=== PATIENT | male | born 1995 | race Caucasian/White ===

== ENCOUNTER 2020-03-26 15:36 | Outpatient (CLI) | payer OTHER, SELFPAY ==
--- NOTE | ~2020-03-26 | XR_ITS ---
XR chest 2V DATE: 03/26/2020 17:34 INDICATION: Dyspnea. Shortness of breath. Lightheadedness, dizziness for 2 weeks. TECHNIQUE: PA and lateral views COMPARISON: None FINDINGS: Normal heart size. No hilar or mediastinal enlargement. No pulmonary infiltrate or consolid ation, pleural effusion or pulmonary vascular congestion or pneumothorax is detected. IMPRESSION: Negative chest Reviewed, dictated and finalized at location A. HERIZATION ADMINISTRATOR IMPRESSION: Negative chest
--- NOTE | 2020-03-26 17:39 | ECG_ITS ---
Measurements Intervals [place] Rate: 96 P: 51 DC: 149 QRS: -4 QRSD: 102 T: 63 QT: 334 QTc: 422 Interpretive Statements SINUS RHYTHM EARLY PRECORDIAL R/S TRANSITION VOLTAGE CRITERIA FOR LVH BORDERLINE ECG Electronically Signed On 03-27-2020 7:05:43 ENTRY LEVEL FINANCIAL ANALYST by Shon Moore D.O.
== END 2020-03-26 15:37 | disposition home or self-care (01) ==
LOC: ANHCARD 15:38
PROVIDERS: Family Provider Family Medicine; PCP Family Medicine; Visit Provider Nurse Practitioner Family
DX: R06.00 Dyspnea, unspecified (principal); R00.0 Tachycardia, unspecified
CPT/HCPCS: 71046; 93005

== ENCOUNTER 2020-03-28 11:06 | Outpatient (CLI) | payer OTHER, SELFPAY ==
--- NOTE | ~2020-03-28 | CT_ITS ---
EXAMINATION: CTA chest PE protocol EXAM DATE: 03/28/2020 12:02 INDICATION: Dizziness. Shortness of breath. History of COVID diagnosis. TECHNIQUE: Spiral CTA of the chest (pulmonary arteries) was performed with 100 cc Omnipaque 350 intr avenous contrast injection. Images were acquired during the pulmonary arterial phase. Coronal maxi mum intensity projection 3D-reconstructions were created by the technologist on dedicated workstation . Axial, coronal and sagittal reformatted images were reviewed. The dose-length product (DLP) for t his examination was 509.85 mGy-cm. The exposure was tailored according to patient size (auto mA exp osure control), and iterative reconstruction (ASIR) was used as additional dose reduction technique. There is no prior study for comparison. FINDINGS: There are no pulmonary emboli in the 1st through 3rd order (central and interlobar) pulmon jean arteries. Some loss of attenuation in the segmental pulmonary arteries due to respiratory motion , but no intraluminal filling defects suspected. No thoracic aortic dissection. The lungs are vish r. There are no pleural or pericardial effusions. Tracheobronchial tree is patent. There is no mediastinal, hilar or axillary lymphadenopathy. There is no pneumothorax. Heart normal in size. No evidence of coronary arterial calcification. There is hepatic steatosis. The bones are unremark able. IMPRESSION: 1. No acute cardiopulmonary findings. 2. Hepatic steatosis. Reviewed, dictated and finalized at location A. TERM CARE PHARMACIST
[2020-03-28 12:54] LABS: Basophils Absolute Auto 0.1 K/mm3 (0.0-0.1); Basophils Percent Auto 0.5 % (0.2-1.2); Eosinophils Absolute Auto 0.1 K/mm3 (0-0.3); Eosinophils Percent Auto 0.8 % (0-4.4); Hemoglobin 15.6 g/dL (14.0-18.0); Immature Granulocyte Absolute 0.07 K/mm3 (0.00-0.031); Immature Granulocyte Percent A 0.5 % (0-0.5); Lymphocytes Absolute Auto 3.26 K/mm3 (0.9-3.2); Lymphocytes Percent Auto 24.6 % (18.3-44.2); Mean Corpuscular HGB Conc 33.9 g/dl (32-36); Mean Corpuscular Hemoglobin 29.4 pg (26-34); Mean Corpuscular Volume 86.6 fl (80-100); Mean Platelet Volume 10.1 fl (7.4-10.4); Monocytes Absolute Auto 1.3 K/mm3 (0.1-0.6); Monocytes Percent Auto 9.6 % (2.6-8.5); Neutrophils Absolute Auto 8.5 K/mm3 (1.3-6.7); Platelet Count Result 302 k/mm3 (150-375); Red Blood Count 5.31 M/mm3 (4.6-6.20); Red Cell Distribution Width 11.8 % (11.5-14.5); White Blood Count 13.3 K/mm3 (4.5-10.0)
[2020-03-28 13:21] LABS: Alanine Aminotransferase 104 U/L (4-50); Albumin Level 4.5 g/dL (3.5-5.1); Alkaline Phosphatase 79 U/L (38-126); Anion Gap 7 mmol/L (8-16); Aspartate Amino Transferase 50 U/L (17-59); Bilirubin,Total 0.9 mg/dL (0.2-1.3); Blood Urea Nitrogen 12 mg/dL (9-20); Calcium 9.6 mg/dL (8.4-10.2); Carbon Dioxide 30 mmol/L (22-30); Chloride 100 mmol/L (98-107); Cholesterol 192 mg/dL (0-200); Estimated Glomerular Filt Rate > 60; Glucose 98 mg/dL (75-110); HDL Direct 29 mg/dL; Potassium 4.5 mmol/L (3.4-5.0); Sodium 137 mmol/L (137-145); Triglycerides 156 mg/dL (<150)
[2020-03-28 13:30] LABS: LDL Cholesterol Direct 141 mg/dL
== END 2020-03-28 11:07 | disposition home or self-care (01) ==
PROVIDERS: PCP Family Medicine; Visit Provider Nurse Practitioner Family
DX: R06.00 Dyspnea, unspecified (principal); R00.0 Tachycardia, unspecified; R42 Dizziness and giddiness; Z13.29 Encounter for screening for other suspected endocrine disorder; Z13.220 Encounter for screening for lipoid disorders; R19.7 Diarrhea, unspecified; Z13.1 Encounter for screening for diabetes mellitus; K76.0 Fatty (change of) liver, not elsewhere classified
CPT/HCPCS: 36415; 71275; 80053; 80061; 84443; 85025; Q9967

== ENCOUNTER 2020-05-13 06:49 | Outpatient (CLI) | payer OTHER, SELFPAY ==
--- NOTE | 2020-05-13 07:02 | ECHO_ITS ---
Patient Info Name: Dominic Bell Age: 25 years : 1995 Gender: Male Ht: 67 in Wt: 220 lbs BSA: 2.21 m2 HR: 99 bpm BP: 137 / 89 mmHg Technical Quality: Good Exam Date: 05/13/2020 7:30 AM Exam Location: [facility] Pul[facility] Patient Status: Outpatient Admit Date: 05/13/2020 Staff Ordering Physician: Shon Moore DO High Scaler: Mily Luke RDCS Attending Provider: Shon Moore DO Referring Physician: Oscar GILLESPIE; Exam Type: CA echo doppler color flow Study Info Indications R06.00 - Dyspnea, unspecified Complete two-dimensional, color flow and Doppler transthoracic echocardiogram is performed. Summary 1. Complete two-dimensional, color flow and Doppler transthoracic echocardiogram is performed. 2. Left ventricular chamber dimension is normal. 3. Left ventricular systolic function is normal, estimated at 65-70%. 4. The left ventricular diastolic function is normal. 5. E/e' 7 is not elevated. 6. Global longitudinal strain is slightly abnormal at -16.5%. Left Ventricle E/e' 7 is not elevated. Global longitudinal strain is slightly abnormal at -16.5%. Left ventricular chamber dimension is normal. Left ventricular systolic function is normal, estimated at 65-70%. The left ventricular diastolic function is normal. Right Ventricle Right ventricular chamber dimension is normal. Right ventricular systolic function is normal. Left Atria Left atrial chamber dimension is normal. Right Atria Right atrial chamber dimension is normal. Aortic Valve The aortic valve is trileaflet. There is no aortic valve stenosis. There is no aortic valve regurgitation. Pulmonic Valve There is no pulmonic regurgitation. Mitral Valve There is no mitral valve stenosis. There is no mitral valve regurgitation. Tricuspid Valve There is no tricuspid valve regurgitation. Pericardium/Pleural There is no pericardial effusion. Inferior Vena Cava Normal inferior vena cava with >50% collapse upon inspiration consistent with normal right atrial pressure, 5 mmHg. Aorta The aortic root size at the sinus of Valsalva is normal. Left Ventricular Outflow Tract Name Value Normal LVOT 2D LVOT Diameter 1.9 cm LVOT Doppler LVOT Peak Gradient 7 mmHg LVOT Mean Gradient 4 mmHg LVOT VTI 24 cm LVOT VTI/AV VTI Ratio 0.9 LVOT Stroke Volume 68 ml LVOT CO 6.3 l/min LVOT CI 2.9 l/min/m2 Pulmonic Valve Name Value Normal RVOT Doppler RVOT Peak Gradient 4 mmHg PV Doppler PV Peak Gradient 8 mmHg Mitral Valve
== END 2020-05-13 06:50 | disposition home or self-care (01) ==
PROVIDERS: PCP Family Medicine; Visit Provider Internal Medicine Cardiovascular Disease
DX: R06.00 Dyspnea, unspecified (principal)
CPT/HCPCS: 93306

== ENCOUNTER 2022-01-10 09:23 | Emergency (ER) | payer OTHER, SELFPAY ==
[2022-01-10 09:37] VITALS: BP 140/85; PULSE 100; RESP 18; TEMP 36.8; O2SAT 100
--- NOTE | 2022-01-10 10:24 | ED.URI ---
HPI - URI/Sore Throat General Chief Complaint: Upper Respiratory Infection Stated Complaint: Sore Throat, Fever, Cough Time Seen by Provider: 01/10/22 10:24 Source: patient Mode of arrival: ambulatory Limitations: no limitations History of Present Illness HPI Narrative: 26-year-old male presents with complaint of nasal congestion, sore throat, fatigue, fever, body aches, cough for Approximately 48 hours. is taking Advil to treat pain and fever. Is not taking any other medications to treat his symptoms. States that throat really bad is concerned he may have strep. Denies nausea vomiting diarrhea. No chest pain or shortness of breath. All systems reviewed and negative except as noted above. Related Data Allergies Allergy/AdvReac Type Severity Reaction Status Date / Time No Known Allergies Allergy Verified 01/10/22 09:51 Review of Systems Review of Systems: CONSTITUTIONAL: Report fever, chills, or sweats. EYES: Denies visual changes, redness, or discharge. ENT: reports rhinorrhea, congestion, sore throat. Deniesotalgia. CARDIOVASCULAR: Denies chest pain, palpitations, or edema. RESPIRATORY: report cough. Denies dyspnea. GASTROINTESTINAL: Denies abdominal pain, nausea, vomiting, or diarrhea. GENITOURINARY: Denies dysuria or hematuria. SKIN: Denies rash or itching. MUSCULOSKELETAL: Denies back pain, joint pain, or myalgia. NEUROLOGIC: Denies headache, numbness, or weakness. PSYCHIATRIC: Denies anxiety or depression. All other systems reviewed are negative, except as documented in HPI. [facility] Past Medical History Medical History Acute left ankle pain Acute left-sided low back pain without sciatica Acute left-sided thoracic back pain BMI 35.0-35.9,adult COVID-19 Dietary counseling and surveillance (02/09/16) Enlarged lymph node Injury of other nerves at ankle and foot level, left leg, initial encounter Mononucleosis Family History Family History Grandparent Hypertension Cerebrovascular accident Family history of coronary artery disease Diabetes mellitus COVID-19 Father No problems noted. Mother COVID-19 Anemia H/O gastric bypass Uterine cancer Sibling No problems noted. 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 There is no relevant family history pertinent to the presenting complaint. Exam Narrative: GENERAL: This is a well-nourished, well-developed patient, in no apparent distress. HEAD: normocephalic, atraumatic. EYES: PERRL. Sclera clear/white. Vision is grossly intact. EARS: External ears normal, auditory canals clear and without drainage, clear fluid bilateral TMs without erythema or perforation. NOSE: External nose normal with Clear nasal drainage, mild congestion, erythema to both nares. THROAT: Mucous membranes moist, Erythema to the pharynx, swelling, tonsils 1+ bilaterally. NECK: Neck supple, non-tender without lymphadenopathy, masses or thyromegaly. CARDIOVASCULAR: Regular rate and rhythm without murmurs, gallops, or rubs. RESPIRATORY: Clear to auscultation. Breath sounds equal bilaterally. No wheezes, rales, or rhonchi. SKIN: warm, Dry, intact with no suspicious lesions or rash, good texture and turgor. NEURO: awake, alert, and oriented to person, place and time. There were no obvious focal neurologic abnormalities. EXTREMITIES: No joint tenderness, effusion, or edema noted. Delete Course Course Level of Care: Express Care Visit Vital Signs Vital si
== END 2022-01-10 10:48 | disposition home or self-care (01) ==
PROVIDERS: Emergency Provider Nurse Practitioner Family; PCP Family Medicine
DX: J10.1 Influenza due to other identified influenza virus with other respiratory manifestations (principal); Z86.16 Personal history of COVID-19
CPT/HCPCS: 87081; 87804; 87880; 99213; G0463

== ENCOUNTER 2022-01-13 08:36 | Emergency (ER) | payer OTHER, SELFPAY ==
[2022-01-13 08:45] VITALS: BP 150/93; PULSE 98; RESP 16; TEMP 36.9; O2SAT 98
--- NOTE | 2022-01-13 09:09 | ED.URI ---
HPI - URI/Sore Throat General Chief Complaint: Upper Respiratory Infection Stated Complaint: cough Time Seen by Provider: 01/13/22 09:09 Source: patient and RN notes reviewed Mode of arrival: ambulatory Limitations: no limitations History of Present Illness HPI Narrative: 26 y/o male presented for c/o right eye crust/drainage this morning. Reports cough, sore throat and large amount sinus drainage for 5 days. Dx with influenza B 3 days ago, currently taking Tamiflu and medrol pack. Reports throat pain is less, states it is still swollen but pain is improving. Patient had negative strep culture. Reports cough is productive green sputum, and frequent causing disruption in sleep. Taking mucinex and advil in addition to prescription medications. Denies sob, wheezing, hemoptysis, n/v/d/f/c. MD elicited complaint: cough Related Data Allergies Allergy/AdvReac Type Severity Reaction Status Date / Time No Known Allergies Allergy Verified 01/13/22 09:00 Review of Systems Review of Systems: ROS per HPI PMFSH Past Medical History Medical History Acute left ankle pain Acute left-sided low back pain without sciatica Acute left-sided thoracic back pain BMI 35.0-35.9,adult COVID-19 Dietary counseling and surveillance (02/09/16) Enlarged lymph node Injury of other nerves at ankle and foot level, left leg, initial encounter Mononucleosis Family History Family History Grandparent Hypertension Cerebrovascular accident Family history of coronary artery disease Diabetes mellitus COVID-19 Father No problems noted. Mother COVID-19 Anemia H/O gastric bypass Uterine cancer Sibling No problems noted. 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 Sinus congestion. TMs with light reflex bilaterally; no tragal tenderness. Oropharynx erythematous without lesions or exudate, no drooling, no hoarseness, no trismus, uvula midline. No tripod positioning, muffled voice, soft palate or pharyngeal wall bulging CHEST: Clear to auscultation, breath sounds equal. No wheezing, rhonchi, rales, or stridor. No respiratory distress, speaks in full sentences. HEART: Regular rate and rhythm. No murmur heard. SKIN: Warm, dry, no rash. NEURO: Alert and oriented x3. Course Course Emergency Course: Patient is aware of diagnosis, understands and agrees to treatment plan. Anticipatory guidance given. Patient agrees to follow-up as directed and is aware of reasons to seek care at the emergency department. Portions of this record may have been created with voice recognition software Level of Care: Express Care Visit Vital Signs Vital signs: Vital Signs Temperature 98.4 F 01/13/22 08:45 Pulse Rate 98 01/13/22 08:45 Respiratory Rate 16 01/13/22 08:45 Blood Pressure 150/93 H 01/13/22 08:45 Pulse Oximetry 98 01/13/22 08:45 Oxygen Delivery Room Air 01/13/22 08:45 Temperature 98.4 F 01/13/22 08:45 Pulse Rate 98 01/13/22 08:45 Respiratory Rate 16 01/13/22 08:45 Blood Pressure 150/93 H 01/13/22 08:45 Pulse Oximetry 98 01/13/22 08:45 Oxygen Delivery Room Air 01/13/22 08:45 reviewed MDM - URI/Sore Throat MDM Narrative Medical decision making narrative: Advised supportive measures and signs/symptoms to go to the ER. Pt is appropriate for outpt treatment and f/u. Differential Diagnosis Differential diagnosis: Likely upper respiratory infection, sinusiti
== END 2022-01-13 09:34 | disposition home or self-care (01) ==
PROVIDERS: Emergency Provider Nurse Practitioner Family; PCP Family Medicine
DX: B34.9 Viral infection, unspecified (principal); H57.89 Other specified disorders of eye and adnexa; Z87.891 Personal history of nicotine dependence
CPT/HCPCS: 99213; G0463